=== PATIENT | female | born 1970 | race Caucasian/White ===

== ENCOUNTER 2020-12-23 17:30 | Outpatient (CLI) | payer OTHER, SELFPAY ==
--- NOTE | ~2020-12-23 | MM_ITS ---
EXAMINATION: MM screening guille BI w kj HISTORY: Screening TECHNIQUE: Craniocaudal and mediolateral oblique 3-D tomosynthesis images were obtained and synthetic 2-D images were generated. CAD analysis was submitted and interpreted. COMPARISON: No prior mammogram is available for comparison at this institution. BREAST PARENCHYMAL COMPOSITION: The breasts are heterogeneously dense, which may obscure small masses . FINDINGS: There are bilateral asymmetries centered in the lower inner quadrant of the right breast an d upper outer quadrant of the left breast. There are no suspicious calcifications. IMPRESSION: 1. Bilateral breast asymmetries. 2. Additional mammographic views and possible breast ultrasound are recommended. BI-RADS Category 0: Incomplete: Needs additional imaging evaluation. Reviewed, dictated and finalized at location A. IMPRESSION: 1. Bilateral breast asymmetries. 2. Additional mammographic views and possible breast ultrasound are recommended . BI-RADS Category 0: Incomplete: Needs additional imaging evaluation.
== END 2020-12-23 17:31 | disposition home or self-care (01) ==
LOC: ANHIMG 17:35
PROVIDERS: PCP Family Medicine; Visit Provider Student in an Organized Health Care Education/Training Program
DX: Z12.31 Encounter for screening mammogram for malignant neoplasm of breast (principal); R92.8 Other abnormal and inconclusive findings on diagnostic imaging of breast
CPT/HCPCS: 77063; 77067

== ENCOUNTER 2021-01-20 11:47 | Outpatient (CLI) | payer OTHER, SELFPAY ==
--- NOTE | ~2021-01-20 | MMUS_ITS ---
EXAMINATION: MM diagnostic mammo BI, US breast BI limited HISTORY: Follow-up breast asymmetries. TECHNIQUE: Additional 3-D tomosynthesis images of the breasts were performed and synthetic 2-D images were generated. CAD analysis was submitted and interpreted. High resolution limited bilateral breast ultrasound was performed. COMPARISON: 12/23/2020 BREAST PARENCHYMAL COMPOSITION: Breast composed of scattered areas of fibroglandular density. FINDINGS: MAMMOGRAPHIC FINDINGS: There are no suspicious masses, calcifications or architectural distortion in either breast to sugges t malignancy. Bilateral breast asymmetries are less dense with spot compression views. ULTRASOUND: Limited right breast ultrasound: At 5:00, 5 cm from the nipple, there is an irregular shaped hypoecho ic mass with posterior shadowing measuring approximately 9 mm transversely. At 6:00, 4 cm from the ni pple, there is is an irregular shaped hypoechoic mass measuring 6 mm with areas of internal echogenic ity. No significant posterior features or internal vascularity. At 2:00, 5 cm from the nipple, there is a 6 mm cyst. Limited left breast ultrasound: At 2:00, 7 cm from the nipple, there is a complicated 4 mm cyst. At 2 :00, 3 cm from the nipple, there is an oval hypoechoic mass with echogenic hilum measuring 6 mm, like ly benign. At 3:00, 8 cm from the nipple, there is a 5 mm cyst. IMPRESSION: 1. Irregular shaped hypoechoic mass of the right breast at 5:00, 5 cm from the nipple measuring up to 9 mm. Additional abnormal mass measuring 6 mm at 6:00, 4 cm from the nipple. 2. Ultrasound-guided right breast biopsies recommended. BI-RADS category 4, suspicious findings. Reviewed, dictated and finalized at location A. IMPRESSION: 1. Irregular shaped hypoechoic mass of the right breast at 5:00, 5 cm from the nipple measuring up to 9 mm. Additional abnormal mass measuring 6 mm at 6:00, 4 cm from the nipple. 2. Ultrasound-guided right breast biopsies recommended. BI-RADS category 4, suspicious findings.
== END 2021-01-20 11:48 | disposition home or self-care (01) ==
PROVIDERS: PCP Family Medicine; Visit Provider Student in an Organized Health Care Education/Training Program
DX: R92.8 Other abnormal and inconclusive findings on diagnostic imaging of breast (principal); N63.15 Unspecified lump in the right breast, overlapping quadrants; N60.01 Solitary cyst of right breast; N63.21 Unspecified lump in the left breast, upper outer quadrant; N60.02 Solitary cyst of left breast
CPT/HCPCS: 76642; 77066

== ENCOUNTER → 2021-10-08 13:25 | Outpatient (CLI) | payer OTHER, SELFPAY ==
--- NOTE | ~2021-10-08 | XR_ITS ---
EXAMINATION: XR ankle LT min 3V DATE: 10/08/2021 13:38 INDICATION: Left ankle pain TECHNIQUE: Anteroposterior, lateral, mortise, and additional oblique view of the ankle were obtained. COMPARISON: None. FINDINGS: There is no fracture, dislocation, or subluxation. A plantar calcaneal enthesophyte is note d. The soft tissues are unremarkable. IMPRESSION: 1. No acute osseous abnormality. Reviewed, dictated and finalized at location F. 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
== END ==
PROVIDERS: PCP Family Medicine; Visit Provider Nurse Practitioner Family
DX: M25.572 Pain in left ankle and joints of left foot (principal)
CPT/HCPCS: 73610

== ENCOUNTER 2022-12-20 15:31 | Outpatient (CLI) | payer OTHER, SELFPAY ==
--- NOTE | ~2022-12-20 | XR_ITS ---
EXAM: XR shoulder LT min 2V DATE: 12/20/2022 16:13 HISTORY: M25.512 - Pain in left shoulder . COMPARISON: None available. FINDINGS: Normal mineralization. No fracture or dislocation. No lytic or blastic lesion. AC joint is maintained. Mild glenohumeral joint narrowing and moderate glenohumeral osteophytosis. No erosion or periosteal change. Soft tissues within normal limits. IMPRESSION: Moderate left glenohumeral osteoarthritis. Reviewed, dictated and finalized at location K.
== END 2022-12-20 15:32 ==
LOC: MICIMG 15:34
PROVIDERS: PCP Family Medicine; Visit Provider Nurse Practitioner Family
DX: M25.512 Pain in left shoulder (principal); M19.012 Primary osteoarthritis, left shoulder
CPT/HCPCS: 73030

== ENCOUNTER 2023-11-30 20:58 | Emergency (ER) | payer OTHER, SELFPAY ==
--- NOTE | ~2023-11-30 | XR_ITS ---
EXAMINATION: XR knee RT min 4V DATE: 11/30/2023 21:34 INDICATION: Right knee swelling. Fall. TECHNIQUE: 4 views of right knee were obtained. COMPARISON: None. FINDINGS: Bone alignment is normal. No fracture. There is mild osteoarthritis of medial compartment, severe osteoarthritis of lateral compartment, and moderate osteoarthritis of patellofemoral compartme nt. There is a small knee joint effusion. IMPRESSION: 1. Severe right knee osteoarthritis. 2. Small right knee joint effusion. Reviewed, dictated and finalized at location E. R ACCOMPANIST
[2023-11-30 21:02] VITALS: BP 160/110; PULSE 114; RESP 20; TEMP 36.6; O2SAT 96
[2023-11-30 21:52] LABS: Influenza A QL RT-PCR Positive (Negative); Influenza B QL RT-PCR Negative (Negative); RSV RNA, RT-PCR Negative (Negative); SARS-CoV-2 RNA PCR Negative (Negative)
--- NOTE | 2023-11-30 21:58 | ED.LOWEXIN ---
HPI - Extremity Injury (Lower) General Chief Complaint: Extremity Injury, Lower Stated Complaint: Right knee injury, flu symptoms Time Seen by Provider: 11/30/23 21:18 Source: patient Mode of arrival: ambulatory Limitations: no limitations History of Present Illness HPI Narrative: Patient is a 53-year-old female, with PMH of RA, who presents the ED with URI symptoms and right knee pain. Patient reports she rolled her ankle yesterday and fell, hitting her right knee against concrete. She has since developed pain and bruising to her right knee. Has been able to ambulate, but has pain with this. Has not taken anything for pain prior to arrival. Denies numbness or tingling. Denies right ankle pain. Patient also reports having flu-like symptoms since last night, including subjective fevers, myalgias, cough, congestion, headache. Notes a family member has been sick with influenza recently. Denies chest pain or shortness breath. Related Data Allergies Allergy/AdvReac Type Severity Reaction Status Date / Time levofloxacin AdvReac Intermediate Muscle Verified 10/14/23 09:33 Spasms tramadol AdvReac Intermediate Rash Verified 10/14/23 09:33 hydrocodone AdvReac Unknown V&N GOMEZ Verified 10/14/23 09:33 Review of Systems Review of Systems: CONSTITUTIONAL: Reports subjective fevers. ENT: See HPI. CARDIOVASCULAR: Denies chest pain. RESPIRATORY: See HPI. GASTROINTESTINAL: Denies abdominal pain, nausea, vomiting. MUSCULOSKELETAL: See HPI. NEUROLOGIC: See HPI. All systems reviewed & are unremarkable except as noted in HPI and below PMFSH Past Medical History Medical History Abnormal chest CT Abnormal laboratory test result Abnormal weight gain Acute bronchitis due to other specified organisms Acute sinusitis, unspecified Arthralgia of temporomandibular joint, unspecified side Asthma Bilateral hand pain Body mass index [BMI] 33.0-33.9, adult (08/15/17) Body mass index [BMI]40.0-44.9, adult (03/21/19) Cellulitis of axilla, left Depression with anxiety Dietary counseling and surveillance (03/15/16) Elevated antinuclear antibody (VIVIEN) level Elevated liver enzymes Elevated sed rate Encounter for screening for lipoid disorders Fibromyalgia Generalized osteoarthritis of multiple sites History of tobacco abuse Hypersomnia IBS (irritable bowel syndrome) Lung nodules Olecranon bursitis of right elbow Opacity of lung on imaging study Osteoarthritis involving multiple joints on both sides of body Other instability, right knee Pleurisy Pneumonia of right lower lobe due to infectious organism Recurrent respiratory infection Rheumatoid arthritis Rheumatoid arthritis involving ankle with positive rheumatoid factor Rheumatoid arthritis involving multiple sites with positive rheumatoid factor Right ankle pain Seropositive rheumatoid arthritis of hand Signs and symptoms involving emotional state SOB (shortness of breath) Stress due to illness of family member Tobacco use Transaminitis URI, acute Vitamin D deficiency Surgical History Surgical History Hx of cholecystectomy Driscoll teeth extracted Family History Family History Mother Hypertension Family history of malignant neoplasm of breast in first degree relative Cerebrovascular accident Family history of gallbladder disease Family history of malignant neoplasm of skin Family history of dementia Acute myocardial infarction Kidney disease Grandparent Cerebrovascular accident Father Family history of coronary artery disease Acute myocardial infarction Sibling Family history of blood dyscrasia Family history of diabetes mellitus in first degree relative COPD (chronic obstructive pulmonary disease) Asthma Diabetes mellitus CKD (chronic kidney disease) Other
[2023-11-30] MEDS: ONDANSETRON HCL ODT 4 MG TABLET PO (22:20)
[2023-11-30] MEDS: oxyCODONE HCL (*CRX) 5 MG TAB IR PO (22:21)
[2023-11-30] MEDS: OSELTAMIVIR PHOSPHATE 75 MG CAPSULE PO (22:21)
[2023-11-30 22:28] VITALS: BP 143/82; PULSE 101; RESP 20; O2SAT 99
== END 2023-11-30 22:31 | disposition home or self-care (01) ==
PROVIDERS: Emergency Medicine; Emergency Provider Physician Assistant; PCP Family Medicine
DX: M25.461 Effusion, right knee (principal); J10.1 Influenza due to other identified influenza virus with other respiratory manifestations; Z20.822 Contact with and (suspected) exposure to COVID-19; J45.909 Unspecified asthma, uncomplicated; F32.A Depression, unspecified; F41.9 Anxiety disorder, unspecified; M19.90 Unspecified osteoarthritis, unspecified site; W01.0XXA Fall on same level from slipping, tripping and stumbling without subsequent striking against object, initial encounter
CPT/HCPCS: 73564; 87637; 99283; A9270

== ENCOUNTER 2024-09-13 14:19 | Outpatient (CLI) | payer OTHER, MEDICAID, SELFPAY ==
--- NOTE | ~2024-09-13 | XR_ITS ---
XR chest 2V 09/13/2024 14:36 Indication: Rheumatoid arthritis Procedure: 2 view chest Comparison: 07/18/2018 Findings: Left basilar atelectasis. No focal pneumonia, edema or effusion. No acute osseous abnormali ty. Impression: 1: Left basilar atelectasis. Reviewed, dictated and finalized at location B. S REPRESENTATIVE TRAINEE Impression: 1: Left basilar atelectasis.
== END 2024-09-13 14:20 | disposition home or self-care (01) ==
PROVIDERS: PCP Family Medicine
DX: J98.11 Atelectasis (principal); M05.79 Rheumatoid arthritis with rheumatoid factor of multiple sites without organ or systems involvement
CPT/HCPCS: 71046

== ENCOUNTER 2025-06-13 11:44 | Outpatient (CLI) | payer OTHER, SELFPAY ==
--- NOTE | ~2025-06-13 | XR_ITS ---
X-rays left hand X-rays right hand Indication: Seropositive RA Comparison: None Technique: 2 views left hand, 2 views right hand Findings/Impression: Left hand: 1. No fracture, dislocation, or other acute abnormality left hand given 2 view series. 2. No significant degenerative changes. 3. No erosive changes. Right hand: 1. No fracture, dislocation, or other acute abnormality right hand given 2 view series. 2. No significant degenerative changes. 3. No erosive changes. Reviewed, dictated and finalized at location R.
--- NOTE | ~2025-06-13 | XR_ITS ---
EXAM/ PROCEDURE: XR foot LT 2V - 06/13/2025 12:10 CDT HISTORY: 54 years old Female with Rheumatoid arthritis with rheumatoid factor of multiple site COMPARISON: None available TECHNIQUE: Three view(s) FINDINGS/ IMPRESSION: There are no fractures or dislocations.Joint space narrowing, subchondral sclerosis, subchondral cyst formation and osteophyte formation, compatible with [id number] osteoarthritis. Calcaneal tendon enthesopathy. Reviewed, dictated and finalized at location N.
--- NOTE | ~2025-06-13 | XR_ITS ---
X-rays right shoulder Indication: OA Comparison: None Technique: 4 views right knee Findings/Impression: 1. No fracture or dislocation. 2. Mild degenerative changes. 3. No erosive changes. Reviewed, dictated and finalized at location R.
--- NOTE | ~2025-06-13 | XR_ITS ---
EXAMINATION: XR foot RT 2V DATE: 06/13/2025 12:35 INDICATION: Rheumatoid arthritis with rheumatoid factor of multiple sites TECHNIQUE: 2 images of the right foot were obtained. COMPARISON: None. FINDINGS: Bones appear osteopenic. Severe joint space narrowing of the first metatarsophalangeal joint with adjacent soft tissue swelling. Moderate-sized plantar and posterior calcaneal spurs. No fracture. No dislocation. Soft tissue swelling about the right foot. Toes are curled slightly limits evaluation. IMPRESSION: 1. No fracture. No dislocation. 2. Severe joint space narrowing of the first metatarsophalangeal joint with adjacent soft tissue swelling. If symptoms persist or worsen, consider a short-term follow-up study or additional imaging for further assessment. Reviewed, dictated and finalized at location Q. IMPRESSION: 1. No fracture. No dislocation. 2. Severe joint space narrowing of the first metatarsophalangeal joint with adj acent soft tissue swelling. If symptoms persist or worsen, consider a short-term follow-up study or additio nal imaging for further assessment.
--- NOTE | ~2025-06-13 | XR_ITS ---
XR shoulder LT min 2V 06/13/2025 12:35 Indication: Osteoarthritis Procedure: 4 views left shoulder Comparison: Findings: There is moderate osteoarthritis of the left glenohumeral joint. No fracture, subluxation or dislocation. No soft tissue abnormality. Surrounding osseous structures and soft tissues are unremarkable. Impression: 1: Moderate left glenohumeral joint osteoarthritis. Reviewed, dictated and finalized at location O. Impression: 1: Moderate left glenohumeral joint osteoarthritis.
--- NOTE | ~2025-06-13 | XR_ITS ---
[id number] 06/13/2025 12:35 Indication: Right knee pain Procedure: 2 views right knee Comparison: No prior studies for comparison. Findings: Moderate tricompartment osteoarthritis of the right knee. No acute fracture, subluxation or dislocation. No significant joint effusion. No foreign bodies. Impression: 1: Moderate tricompartment osteoarthritis of the right knee. Reviewed, dictated and finalized at location O. Impression: 1: Moderate tricompartment osteoarthritis of the right knee.
--- NOTE | ~2025-06-13 | XR_ITS ---
[id number] 06/13/2025 12:35 Indication: Left knee pain Procedure: 2 views left knee Comparison: No prior studies for comparison. Findings: There is moderate-severe tricompartment osteoarthritis. No acute fracture, subluxation or dislocation. No significant joint effusion. Impression: 1: Moderate-severe tricompartment osteoarthritis of the left knee. Reviewed, dictated and finalized at location O. Impression: 1: Moderate-severe tricompartment osteoarthritis of the left knee.
== END 2025-06-13 11:45 | disposition home or self-care (01) ==
PROVIDERS: PCP Family Medicine; Visit Provider Internal Medicine Rheumatology
DX: M05.89 Other rheumatoid arthritis with rheumatoid factor of multiple sites (principal); R53.81 Other malaise; M17.0 Bilateral primary osteoarthritis of knee
CPT/HCPCS: 73030; 73120; 73560; 73620